=== PATIENT | male | born 1940 | race Caucasian/White ===

== ENCOUNTER 2024-05-20 13:28 | Inpatient (IN) | payer MEDICARE, OTHER ==
[~2024-05-20] VITALS: Ht 162.6 cm; Wt 67.1 kg
[2024-05-20] MEDS ORDERED: LEVO50TA8 PO (13:50)
[2024-05-20] MEDS ORDERED: TAMS-3 PO (13:50)
[2024-05-20] MEDS ORDERED: ESCI10TA PO (13:50)
[2024-05-20] MEDS ORDERED: AMLO-212 PO (13:50)
[2024-05-20] MEDS ORDERED: LINA72CA PO (13:50)
[2024-05-20] MEDS ORDERED: VIT1CAPS44 PO (13:50)
[2024-05-20] MEDS ORDERED: OLOP5DRO15 EACHEYE (13:50)
[2024-05-20] MEDS ORDERED: AZEL205. NS (13:50)
[2024-05-20] MEDS ORDERED: CYAN-10 IM (13:50)
[2024-05-20 13:56] LABS: BASOPHILS # (AUTO) 0.2 K/UL (0.0-0.2); BASOPHILS % (AUTO) 3.3 % (0.0-2.0); EOSINOPHILS # (AUTO) 0.1 K/uL (0.0-0.7); EOSINOPHILS % (AUTO) 2.2 % (0.0-7.0); HEMATOCRIT 41.1 % (36.7-47.1); LYMPHOCYTES # (AUTO) 1.4 K/uL (0.8-4.8); LYMPHOCYTES % (AUTO) 24.8 % (20.5-51.5); MEAN CORPUSCULAR HEMOGLOBIN 29.5 uug (23.8-33.4); MEAN CORPUSCULAR HGB CONC 32 g/dL (32.5-36.3); MONOCYTES # (AUTO) 0.6 K/uL (0.1-1.30); MONOCYTES % (AUTO) 9.6 % (0.0-11.0); NEUTROPHILS # (AUTO) 3.5 K/uL (1.8-8.9); NEUTROPHILS % (AUTO) 60.1 % (38.5-71.5); PLATELET COUNT (AUTO) 242 K/uL (152-348); RED BLOOD CELL COUNT(AUTO) 4.41 MIL/uL (4.06-5.63); WHITE BLOOD COUNT (AUTO) 5.8 K/uL (3.6-10.2)
[2024-05-20 14:02] LABS: *BILIRUBIN,URIN NEGATIVE (NEGATIVE); *BLOOD, URINE 1+ (NEGATIVE); *CLARITY,URINE CLEAR (CLEAR); *COLOR,URINE YELLOW (YELLOW); *KETONES,URINE NEGATIVE (NEGATIVE); *PROTEIN,URINE NEGATIVE (NEGATIVE); *UROBILINOGEN,URINE 0.2 E.U./dl (NORMAL); LEUKOCYTE ESTERASE ,URINE 1+ (NEGATIVE); NITRITE, URINE POSITIVE (NEGATIVE); PH,URINE 5.5 (5.0-8.0); UGLUCOSE NEGATIVE (NEGATIVE)
[2024-05-20 14:10] LABS: ETHANOL < 3 MG/DL (0-10)
[2024-05-20 14:13] LABS: *AMPHETAMINE, URINE NEGATIVE (NEGATIVE); *BARBITURATE, URINE NEGATIVE (NEGATIVE); *BENZODIAZEPINE, URINE NEGATIVE (NEGATIVE); *CANNABINOID, URINE NEGATIVE (NEGATIVE); *COCCAINE, URINE NEGATIVE (NEGATIVE); *OPIATE, URINE NEGATIVE (NEGATIVE); *PHENCYCLIDINE SCREEN,URINE NEGATIVE (NEGATIVE); FENTANYL, URINE NEGATIVE (NEGATIVE)
[2024-05-20 14:16] LABS: DIFFERENTIAL COMMENT 1
[2024-05-20 14:34] LABS: CALCIUM 9.3 mg/dL (8.5-10.1); CARBON DIOXIDE 27 mmol/L (21-32); CHLORIDE 104 mmol/L (98-107); CREATININE 1.1 mg/dL (0.6-1.3); GLUCOSE 92 mg/dL (74-106); POTASSIUM 4.5 mmol/L (3.5-5.1); SODIUM SERUM 139 mmol/L (136-145); UREA NITROGEN, BLOOD 19 mg/dL (7-18)
[2024-05-20 14:47] LABS: ALANINE AMINOTRANSFERASE 10 U/L (16-63); ALBUMIN 3.3 g/dL (3.4-5.0); ALKALINE PHOSPHATASE 95 U/L (50-136); ASPARTATE AMINOTRANSFERASE < 5 U/L (15-37); BILIRUBIN,DIRECT 0.2 mg/dL (0.0-0.2); BILIRUBIN,TOTAL 0.6 mg/dL (0.2-1.0); TOTAL PROTEIN, SERUM 6.8 g/dL (6.4-8.2)
[2024-05-20 14:55] LABS: ACETAMINOPHEN < 2.0 ug/mL (10-30)
[2024-05-20] MEDS ORDERED: CIPROFLOXACIN HCL 250 MG TABLET ONE (14:59)
[2024-05-20 15:00] LABS: BACTERIA,URINE MODERATE /HPF (NONE SEEN); SQUAMOUS EPITHELIAL CELL,UR FEW /HPF (NONE SEEN); WBC,URINE 20-50 /HPF (0-3)
[2024-05-20] MEDS: CIPROFLOXACIN HCL 250 MG TABLET PO ONE (15:02)
[2024-05-20] MEDS ORDERED: LORAZEPAM 1 MG TABLET ONE (16:11)
[2024-05-20] MEDS: LORAZEPAM 0.5 MG TABLET PO ONE (16:18)
[2024-05-20] MEDS ORDERED: MAG HYDROX/AL HYDROX/SIMETH 30 ML LIQUID UDC PO PRN (22:00)
[2024-05-20] MEDS: TEMAZEPAM 7.5 MG CAPSULE PO PRN (22:49)
[2024-05-21] MEDS ORDERED: AZEL6DRO5 EACHEYE (06:34)
[2024-05-21] MEDS ORDERED: BACL10TA PO (06:36)
[2024-05-21] MEDS ORDERED: TYLENOL ARTHRITIS PO (06:38)
[2024-05-21 07:30] VITALS: BP 123/66; TEMP 97.8; O2SAT 98
[2024-05-21 07:46] LABS: ALANINE AMINOTRANSFERASE 10 U/L (16-63); ALBUMIN 3.6 g/dL (3.4-5.0); ALKALINE PHOSPHATASE 98 U/L (50-136); ASPARTATE AMINOTRANSFERASE 9 U/L (15-37); BILIRUBIN,TOTAL 0.7 mg/dL (0.2-1.0); CALCIUM 9.6 mg/dL (8.5-10.1); CARBON DIOXIDE 27 mmol/L (21-32); CHLORIDE 105 mmol/L (98-107); CREATININE 0.9 mg/dL (0.6-1.3); GLUCOSE 103 mg/dL (74-106); POTASSIUM 3.9 mmol/L (3.5-5.1); SODIUM SERUM 140 mmol/L (136-145); TOTAL PROTEIN, SERUM 7.4 g/dL (6.4-8.2); UREA NITROGEN, BLOOD 17 mg/dL (7-18)
[2024-05-21] MEDS ORDERED: CYANOCOBALAMIN 1000 MCG/ML VIAL IM SCH (09:00)
[2024-05-21] MEDS ORDERED: TYLENOL ARTHRITIS 650 MG PO SCH (11:45)
[2024-05-21] MEDS ORDERED: BACLOFEN 10 MG TABLET PO PRN (11:45)
[2024-05-21] MEDS: LORAZEPAM 0.5 MG TABLET PO PRN (14:12)
[2024-05-21 16:33] VITALS: BP 127/66; TEMP 97.9; O2SAT 97
[2024-05-21] MEDS ORDERED: Medication Not On Formulary EA (Vit C/E/Zn/Coppr/Lutein/Zeaxan (Preservision Areds 2 Sof PO SCH (17:00)
[2024-05-21] MEDS: BETA CAROTENE/VIT C & E/MIN TABLET PO SCH (17:15)
[2024-05-21] MEDS: OLOPATADINE 0.1% OPHT DROP 5 ML BOTTLE EACHEYE SCH (17:15)
[2024-05-21 20:00] VITALS: BP 124/71; TEMP 97.9; O2SAT 98
[2024-05-21] MEDS: TAMSULOSIN HCL 0.4 MG CAP.SR.24H PO SCH (20:54)
[2024-05-22] MEDS: LEVOTHYROXINE SODIUM 50 MCG TABLET PO SCH (06:27)
[2024-05-22 07:56] VITALS: BP 110/53; TEMP 97.7; O2SAT 99
[2024-05-22] MEDS: AMLODIPINE 5 MG TABLET PO SCH (08:38)
[2024-05-22] MEDS: CYANOCOBALAMIN 1000 MCG/ML VIAL IM SCH (08:39)
[2024-05-22] MEDS ORDERED: Linaclotide (Linzess) 72 MCG) PO SCH (09:00)
[2024-05-22] MEDS: ESCITALOPRAM OXALATE 10 MG TABLET PO SCH (11:12)
[2024-05-22] MEDS ORDERED: ESCITALOPRAM OXALATE 10 MG TABLET PO SCH (13:00)
[2024-05-22 16:34] VITALS: BP 117/53; TEMP 97.8; O2SAT 99
[2024-05-22 20:07] VITALS: BP 114/51; TEMP 98.1; O2SAT 98
[2024-05-22] MEDS: MIRTAZAPINE 15 MG TABLET PO SCH (21:13)
[2024-05-23] MEDS: CEphaleXIN 500 MG CAPSULE PO SCH ×2 (00:10→17:23)
[2024-05-23 07:46] LABS: BASOPHILS % (AUTO) 0.7 % (0.0-2.0); DIFFERENTIAL COMMENT 1; EOSINOPHILS # (AUTO) 0.1 K/uL (0.0-0.7); EOSINOPHILS % (AUTO) 1.8 % (0.0-7.0); HEMOGLOBIN 13.3 g/dL (12.5-16.3); LYMPHOCYTES # (AUTO) 1.4 K/uL (0.8-4.8); LYMPHOCYTES % (AUTO) 24.9 % (20.5-51.5); MEAN CORPUSCULAR HEMOGLOBIN 30.6 uug (23.8-33.4); MEAN CORPUSCULAR HGB CONC 33 g/dL (32.5-36.3); MEAN CORPUSCULAR VOLUME 91.9 fL (73.0-96.2); MONOCYTES # (AUTO) 0.6 K/uL (0.1-1.30); MONOCYTES % (AUTO) 10.2 % (0.0-11.0); NEUTROPHILS # (AUTO) 3.6 K/uL (1.8-8.9); NEUTROPHILS % (AUTO) 62.4 % (38.5-71.5); PLATELET COUNT (AUTO) 232 K/uL (152-348); RED BLOOD CELL COUNT(AUTO) 4.35 MIL/uL (4.06-5.63); RED CELL DISTRIBUTION WIDTH 13.9 % (12.1-16.2); WHITE BLOOD COUNT (AUTO) 5.8 K/uL (3.6-10.2)
[2024-05-23 08:00] LABS: CALCIUM 9.4 mg/dL (8.5-10.1); CARBON DIOXIDE 22 mmol/L (21-32); CHLORIDE 105 mmol/L (98-107); CREATININE 1.1 mg/dL (0.6-1.3); GLUCOSE 109 mg/dL (74-106); PHOSPHOROUS 3.3 mg/dL (2.5-4.9); SODIUM SERUM 138 mmol/L (136-145); UREA NITROGEN, BLOOD 27 mg/dL (7-18)
[2024-05-23 08:23] VITALS: BP 104/67; TEMP 98.4; O2SAT 99
[2024-05-23] MEDS: LORATADINE 10 MG TABLET PO SCH (13:03)
[2024-05-23 16:12] VITALS: BP 112/70; TEMP 98; O2SAT 98
[2024-05-23 19:45] VITALS: BP 130/57; TEMP 98.1; O2SAT 97
[2024-05-23] MEDS: SIMVASTATIN 20 MG TABLET PO SCH (20:58)
[2024-05-24 08:25] VITALS: BP 113/54; TEMP 98; O2SAT 96
[2024-05-24 15:45] VITALS: BP 112/49; TEMP 98; O2SAT 96
[2024-05-24 20:03] VITALS: BP 115/51; TEMP 98.1; O2SAT 94
[2024-05-24] MEDS: MAGNESIUM HYDROXIDE 30 ML LIQUID UDC PO PRN (22:26)
[2024-05-25 07:57] VITALS: BP 127/63; TEMP 98.4; O2SAT 96
[2024-05-25 16:36] VITALS: BP 120/66; TEMP 98; O2SAT 98
[2024-05-25 20:06] VITALS: BP 118/64; TEMP 98.1; O2SAT 96
[2024-05-25] MEDS: SULFAMETH/TRIMETH 800/160 MG TABLET PO SCH (20:38)
[2024-05-25] MEDS: DOCUSATE SODIUM 100 MG CAPSULE PO SCH (20:38)
[2024-05-26 07:58] VITALS: BP 112/52; TEMP 98.2; O2SAT 96
[2024-05-26 15:03] VITALS: BP 109/54; TEMP 98; O2SAT 96
[2024-05-26 20:00] VITALS: BP 141/55; TEMP 98; O2SAT 96
[2024-05-27 07:49] VITALS: BP 131/62; TEMP 98.2; O2SAT 98
[2024-05-27 16:08] VITALS: BP 114/48; TEMP 97.9; O2SAT 95
[2024-05-27] MEDS: FLUTICASONE PROP NASAL SPRAY 16 GM BOTTLE NS SCH (16:33)
[2024-05-27] MEDS: LACTULOSE 20 G/30 ML LIQUID UDC PO ONE (17:04)
[2024-05-27] MEDS: SORBITOL 70% SOLUTION 30 ML UDC PO ONE (17:05)
[2024-05-27 20:00] VITALS: BP 117/60; TEMP 98.4; O2SAT 95
[2024-05-28 08:47] VITALS: BP 107/53; TEMP 98; O2SAT 98
[2024-05-28 15:52] VITALS: BP 101/68; TEMP 98; O2SAT 98
[2024-05-28 20:00] VITALS: BP 114/60; TEMP 98; O2SAT 97
[2024-05-29] MEDS: MIRALAX 17 GM POWD.PACK PO PRN (08:07)
[2024-05-29 08:47] VITALS: BP 128/83; TEMP 98.2; O2SAT 98
[2024-05-29 16:14] VITALS: BP 142/63; TEMP 98; O2SAT 98
[2024-05-29 20:12] VITALS: BP 136/66; TEMP 98.1; O2SAT 97
[2024-05-30 08:00] VITALS: BP 98/54; TEMP 98.2; O2SAT 99
[2024-05-30 15:56] VITALS: BP 121/61; TEMP 98.1; O2SAT 99
[2024-05-30] MEDS: ACETAMINOPHEN 325 MG TABLET PO PRN (18:12)
[2024-05-30 20:14] VITALS: BP 136/51; TEMP 98; O2SAT 96
[2024-05-31] MEDS: ESCITALOPRAM OXALATE 10 MG TABLET PO SCH (08:31)
[2024-05-31 08:36] VITALS: BP 113/66; TEMP 98.4; O2SAT 99
[2024-05-31 15:43] VITALS: BP 102/51; TEMP 98.2; O2SAT 96
[2024-05-31 20:13] VITALS: BP 109/53; TEMP 97.9; O2SAT 96
[2024-06-01 07:56] VITALS: BP 119/60; TEMP 98.2; O2SAT 96
== END 2024-06-01 11:00 | DRG 885 ==
LOC: ER 13:28 → GPS 21:06
PROVIDERS: ADMIT Psychiatry & Neurology Psychosomatic Medicine; ATTEND Student in an Organized Health Care Education/Training Program
DX: F32.2 Major depressive disorder, single episode, severe without psychotic features (principal); I11.0 Hypertensive heart disease with heart failure; F03.94 Unspecified dementia, unspecified severity, with anxiety; F03.93 Unspecified dementia, unspecified severity, with mood disturbance; R45.851 Suicidal ideations; N39.0 Urinary tract infection, site not specified; F41.1 Generalized anxiety disorder; N40.0 Benign prostatic hyperplasia without lower urinary tract symptoms; B96.89 Other specified bacterial agents as the cause of diseases classified elsewhere; K58.9 Irritable bowel syndrome, unspecified; G89.29 Other chronic pain; M15.9 Polyosteoarthritis, unspecified; E86.0 Dehydration; Z79.899 Other long term (current) drug therapy; I11.9 Hypertensive heart disease without heart failure; E78.5 Hyperlipidemia, unspecified; J30.2 Other seasonal allergic rhinitis; E53.8 Deficiency of other specified B group vitamins; E03.9 Hypothyroidism, unspecified; R79.89 Other specified abnormal findings of blood chemistry; Z79.890 Hormone replacement therapy
CPT/HCPCS: 36415; 83735; 84100; 84443; 85025; G0480; J3420; J3535